=== PATIENT | male | born 1940 | race Two or more races ===

== ENCOUNTER → 2024-09-25 | Outpatient (BNVA) | payer MEDICAID, SELFPAY | END | disposition home or self-care (01) | PROVIDERS: PCP Nurse Practitioner Family; Referring Provider Nurse Practitioner Family; Visit Provider Nurse Practitioner Family | DX: D64.9 Anemia, unspecified (principal); I10 Essential (primary) hypertension; N40.0 Benign prostatic hyperplasia without lower urinary tract symptoms; Z23 Encounter for immunization | CPT/HCPCS: 85018; 90686; 99213 ==

== ENCOUNTER → 2024-09-29 | Outpatient (BNVA) | payer MEDICAID, SELFPAY | END | disposition home or self-care (01) | PROVIDERS: PCP Nurse Practitioner Family; Referring Provider Nurse Practitioner Family; Visit Provider Nurse Practitioner Family | DX: D64.9 Anemia, unspecified (principal); Z71.2 Person consulting for explanation of examination or test findings | CPT/HCPCS: 99212; G0463 ==

== ENCOUNTER → 2025-01-26 | Outpatient (BNVA) | payer MEDICAID, SELFPAY | END | disposition home or self-care (01) | PROVIDERS: PCP Nurse Practitioner Family; Referring Provider Nurse Practitioner Family; Visit Provider Nurse Practitioner Family | DX: N40.0 Benign prostatic hyperplasia without lower urinary tract symptoms (principal); I10 Essential (primary) hypertension; M25.562 Pain in left knee; M25.561 Pain in right knee; Z23 Encounter for immunization | CPT/HCPCS: 90471; 90677; 99213; J90677 ==

== ENCOUNTER → 2025-03-04 | Outpatient (BNVA) | payer MEDICAID, SELFPAY | END | disposition home or self-care (01) | PROVIDERS: PCP Nurse Practitioner Family; Referring Provider Nurse Practitioner Family; Visit Provider Nurse Practitioner Family | DX: N40.0 Benign prostatic hyperplasia without lower urinary tract symptoms (principal); Z00.01 Encounter for general adult medical examination with abnormal findings; H91.90 Unspecified hearing loss, unspecified ear; Z13.820 Encounter for screening for osteoporosis; I10 Essential (primary) hypertension; R01.1 Cardiac murmur, unspecified; Z71.85 Encounter for immunization safety counseling; Z13.220 Encounter for screening for lipoid disorders; Z13.1 Encounter for screening for diabetes mellitus; K21.9 Gastro-esophageal reflux disease without esophagitis; E55.9 Vitamin D deficiency, unspecified; M25.562 Pain in left knee; M25.561 Pain in right knee; Z12.11 Encounter for screening for malignant neoplasm of colon; R31.9 Hematuria, unspecified | CPT/HCPCS: 81001; 93005; 99173; 99215 ==

== ENCOUNTER → 2025-09-14 | Outpatient (BNVA) | payer MEDICAID, SELFPAY | END | disposition home or self-care (01) | PROVIDERS: PCP Nurse Practitioner Family; Referring Provider Nurse Practitioner Family; Visit Provider Nurse Practitioner Primary Care | DX: K21.00 Gastro-esophageal reflux disease with esophagitis, without bleeding (principal); M25.561 Pain in right knee; M25.562 Pain in left knee; N40.0 Benign prostatic hyperplasia without lower urinary tract symptoms; I10 Essential (primary) hypertension; Z76.0 Encounter for issue of repeat prescription | CPT/HCPCS: 99212; G0463 ==